=== PATIENT | male | born 1945 | race Caucasian/White ===

== ENCOUNTER → 2020-01-25 | Outpatient (CLI) | payer OTHER | LOC: CAT 09:51 | PROVIDERS: ATTEND Family Medicine | DX: Z13.6 Encounter for screening for cardiovascular disorders (principal); I25.10 Atherosclerotic heart disease of native coronary artery without angina pectoris; E78.00 Pure hypercholesterolemia, unspecified ==

== ENCOUNTER → 2020-01-25 | Outpatient (CLI) | payer OTHER | LOC: MRI 07:01 | PROVIDERS: ATTEND Family Medicine | DX: S66.312A Strain of extensor muscle, fascia and tendon of right middle finger at wrist and hand level, initial encounter (principal); M19.041 Primary osteoarthritis, right hand; L03.113 Cellulitis of right upper limb; L02.511 Cutaneous abscess of right hand; W54.0XXA Bitten by dog, initial encounter; X58.XXXA Exposure to other specified factors, initial encounter; Y93.89 Activity, other specified; Y92.89 Other specified places as the place of occurrence of the external cause; Y99.8 Other external cause status ==

== ENCOUNTER → 2021-05-31 | Outpatient (CLI) | payer OTHER ==
[~2021-05-31] MED LIST: VITAMIN C500 M1 PO; VITAMIN D325 MC2 PO; ZINC50 MG PO
== END ==
LOC: LAB 08:32
PROVIDERS: ATTEND Student in an Organized Health Care Education/Training Program
DX: Z01.812 Encounter for preprocedural laboratory examination (principal); Z20.822 Contact with and (suspected) exposure to COVID-19

== ENCOUNTER → 2021-06-03 | Outpatient (CLI) | payer OTHER ==
[~2021-06-03] VITALS: Ht 172.7 cm; Wt 83.9 kg
--- NOTE | 2021-06-06 15:07 | PATH ---
[facility] [place] [address] [address] PATHOLOGY RPT PROCEDURE Name: JOSE ANGEL CORONEL Room #: REG DENVER Cobb.#: [id number] Admission: 06/03/21 Date of : 47 Discharge: Report #: [id number] Path Case #: [id number] [facility] Accession Number: [id number] . 01 Material submitted: . PART A: sigmoid colon - SIGMOID POLYP BIOPSY PART B: rectum - RECTAL POLYP . 01 Clinical history: . COLONOSCOPY HX COLON POLYP . 02 Diagnosis: A. Sigmoid colon polyp, polypectomy: - Tubular adenoma. - Negative for high-grade dysplasia or malignancy. . B. Rectal polyp, polypectomy: - Tubular adenoma. - Negative for high-grade dysplasia or malignancy. (ANK:beto; 06/05/2021) QMS 06/05/2021 1120 Local . 02 Electronically signed: . Farzaneh Reynoso MD, Pathologist NPI- [id number] . 01 Gross description: . A. The specimen is received in formalin, labeled "Jose Angel Coronel, sigmoid polyp biopsy". Received are two segments of pale garces tissue measuring zero point to and 0.5 cm in maximum dimensions. The specimen is submitted entirely in cassette A1. . B. The specimen is received in formalin, labeled "Jose Angel Coronel, rectal polyp". Received is a segment of pale garces tissue measuring 1.0 cm in maximum dimensions. The specimen is submitted entirely in cassette D1. (CAA; 06/04/2021) QAC/QAC 06/04/2021 0901 Local . 02 Pathologist provided ICD-10: D12.5, D12.8 . 02 CPT . 457906, [id number] Specimen Comment: A courtesy copy of this report has been sent to [phone] Specimen Comment: [id number] [place] [address] PATHOLOGY RPT PROCEDURE Name: JOSE ANGEL CORONEL Room #: REG DAYOSeth Manuel#: [id number] Admission: 06/03/21 Date of : 47 Discharge: Report #: [id number] Path Case #: [id number] Specimen Comment: Report sent to / DR LINDSEY Specimen Comment: A duplicate report has been generated due to demographic updates. Performed at: 01 [facility] [address], [place], [place] [id number] MD Ed Martin MD Phone: [phone] Performed at: [address] [id number] MD Farzaneh Reynoso MD Phone: [phone]
== END | disposition home or self-care (01) ==
LOC: GI
PROVIDERS: ATTEND Internal Medicine Gastroenterology
DX: Z12.11 Encounter for screening for malignant neoplasm of colon (principal); Z86.010 Personal history of colon polyps; D12.5 Benign neoplasm of sigmoid colon; D12.8 Benign neoplasm of rectum; K57.30 Diverticulosis of large intestine without perforation or abscess without bleeding; K64.8 Other hemorrhoids; Z98.890 Other specified postprocedural states
CPT/HCPCS: 62110; 62900